=== PATIENT | male | born 1940 | race Caucasian/White ===

== ENCOUNTER 2017-11-12 13:36 | Observation (INO) | payer OTHER ==
[~2017-11-12] VITALS: Ht 177.8 cm; Wt 86.1 kg
[2017-11-12 13:57] LABS: BASOPHILS % (AUTO) 0.6 % (0.0-5.0); EOSINOPHILS % (AUTO) 6.2 % (0.0-8.0); HEMATOCRIT 36.9 % (42-54); LYMPHOCYTES % (AUTO) 21.7 % (21.0-51.0); MEAN CORPUSCULAR HEMOGLOBIN 33.4 pg (27.0-33.0); MEAN CORPUSCULAR HGB CONC 36.6 g/dL (32.0-36.0); MEAN CORPUSCULAR VOLUME 91.3 fL (79-99); MONOCYTES % (AUTO) 7.2 % (3.0-13.0); NEUTROPHILS % (AUTO) 64.3 % (40.0-77.0); PLATELET COUNT (AUTO) 113 K/uL (130-400); RED BLOOD CELL COUNT(AUTO) 4.04 MIL/uL (4.50-6.20); RED CELL DISTRIBUTION WIDTH 15.5 % (11.0-15.5); WHITE BLOOD COUNT (AUTO) 4.1 K/uL (4.8-10.8)
[2017-11-12 14:10] LABS: CREATININE 1.3 mg/dL (0.5-1.5); INR 1.09 (0.85-1.15); PARTIAL THROMBOPLASTIN TIME 25.8 SEC (26.3-35.5); POTASSIUM 4.4 mmol/L (3.5-5.1); PROTHROMBIN TIME 11.4 SEC (9.6-11.6)
[2017-11-12 14:26] LABS: ALBUMIN 3.7 g/dL (3.5-5.0); CREATINE KINASE MB 0.6 ng/mL (0.5-3.6)
[2017-11-12] MEDS ORDERED: NITROGLYCERIN 1GM/1 INCH PACKET TD ONE (14:26)
[2017-11-12] MEDS ORDERED: MAG HYDROX/AL HYDROX/SIMETH ES 30 ML SUSP UDCUP PO PRN (15:00)
[2017-11-12] MEDS ORDERED: ACETAMINOPHEN 325 MG TAB PO PRN ×2 (15:00)
[2017-11-12] MEDS ORDERED: GUAIFENESIN-DM 200/20 MG 10 ML PO PRN (15:00)
[2017-11-12] MEDS ORDERED: NITROGLYCERIN 0.4 MG SL TAB SL PRN (15:00)
[2017-11-12] MEDS ORDERED: LACTULOSE 20 GM/30 ML UDCUP PO PRN (15:00)
[2017-11-12] MEDS ORDERED: ONDANSETRON HCL 4 MG/2 ML VIAL IV PRN (15:00)
[2017-11-12] MEDS: FAMOTIDINE/PF 20 MG/2 ML VIAL IV SCH (21:00)
[2017-11-12 22:13] LABS: CREATINE KINASE MB 0.6 ng/mL (0.5-3.6); CREATINE KINASE, TOTAL 59 U/L (21-232); MYOGLOBIN 92 ng/mL (10-92); TROPONIN I < 0.04 ng/mL (0.00-0.06)
[2017-11-13 01:10] VITALS: BP 184/94
[2017-11-13 02:00] VITALS: BP 182/90
[2017-11-13] MEDS ORDERED: HYDRALAZINE HCL 20 MG/ML VIAL ONE (02:21)
[2017-11-13] MEDS ORDERED: POTASSIUM CHLORIDE 20MEQ/100ML 100 ML IV PRN (02:30)
[2017-11-13] MEDS ORDERED: MORPHINE SULFATE 2 MG/ML 1ML SYG IVP PRN ×2 (02:30)
[2017-11-13] MEDS ORDERED: IPRATROPIUM/ALBUTEROL SULFATE 3 ML SOLUTION IH PRN (02:30)
[2017-11-13] MEDS ORDERED: HYDRALAZINE HCL 20 MG/ML VIAL IV PRN (02:30)
[2017-11-13] MEDS ORDERED: POTASSIUM CHLORIDE 10% ELIXIR 20 MEQ/15 ML UDCUP PO PRN (02:30)
[2017-11-13] MEDS ORDERED: LIDOCAINE HCL-MPF 1% 2ML VIAL IVP PRN (02:30)
[2017-11-13] MEDS ORDERED: POTASSIUM CHLORIDE 20 MEQ ERTAB PO PRN (02:30)
[2017-11-13 04:00] VITALS: BP 176/95
[2017-11-13 04:23] LABS: HEMATOCRIT 37.4 % (42-54); MEAN CORPUSCULAR HEMOGLOBIN 32.3 pg (27.0-33.0); MEAN CORPUSCULAR HGB CONC 35.5 g/dL (32.0-36.0); MEAN CORPUSCULAR VOLUME 90.8 fL (79-99); PLATELET COUNT (AUTO) 111 K/uL (130-400); RED BLOOD CELL COUNT(AUTO) 4.12 MIL/uL (4.50-6.20); RED CELL DISTRIBUTION WIDTH 15.6 % (11.0-15.5); WHITE BLOOD COUNT (AUTO) 4.8 K/uL (4.8-10.8)
[2017-11-13 04:32] LABS: CARBON DIOXIDE 27 mmol/L (21-32); CHLORIDE 104 mmol/L (101-111); CREATININE 1.5 mg/dL (0.5-1.5); GLOMERULAR FILTR. RATE CALC 48 mL/min (>60); GLUCOSE,RANDOM 103 mg/dL (70-105); POTASSIUM 3.6 mmol/L (3.5-5.1); SODIUM SERUM 141 mmol/L (136-145); UREA NITROGEN, BLOOD 15 mg/dL (7-18)
[2017-11-13 04:46] LABS: CHOLESTEROL 116 mg/dL (<200); CREATINE KINASE MB 0.7 ng/mL (0.5-3.6); CREATINE KINASE, TOTAL 64 U/L (21-232); HDL CHOLESTEROL 41 mg/dL (29-71); LDL DIRECT 55 mg/dL (0-99); MYOGLOBIN 103 ng/mL (10-92); THYROID STIMULATING HORMONE 7.06 uIU/mL (0.36-3.74); TRIGLYCERIDES 224 mg/dL (30-200); TROPONIN I < 0.04 ng/mL (0.00-0.06)
[2017-11-13 08:00] VITALS: BP 203/96
[2017-11-13] MEDS ORDERED: ASPIRIN 325 MG TABLET PO SCH (09:00)
[2017-11-13] MEDS ORDERED: METOPROLOL TARTRATE 25 MG TAB PO SCH (09:00)
[2017-11-13] MEDS ORDERED: CLONIDINE HCL 0.2 MG TABLET PO SCH (09:00)
[2017-11-13] MEDS ORDERED: ENOXAPARIN SODIUM 40 MG/0.4 ML SYRINGE SQ SCH (09:00)
[2017-11-13] MEDS ORDERED: CLONIDINE HCL 0.2 MG TABLET PO ONE (09:03)
[2017-11-13] MEDS: FAMOTIDINE/PF 20 MG/2 ML VIAL IV SCH (09:08)
[2017-11-13] MEDS ORDERED: OMEP20TA25 PO (09:21)
[2017-11-13] MEDS ORDERED: CILO100T PO (09:21)
[2017-11-13] MEDS ORDERED: CLON0.1T PO (09:21)
[2017-11-13] MEDS ORDERED: CLOP75TA32 PO (09:21)
[2017-11-13] MEDS ORDERED: OMEG1CAP67 PO (09:21)
[2017-11-13] MEDS ORDERED: ASPI-555 PO (09:21)
[2017-11-13] MEDS ORDERED: TAMS-1 PO (09:21)
[2017-11-13] MEDS ORDERED: ROSU5TAB18 PO (09:21)
[2017-11-13] MEDS ORDERED: CARV12.580 PO (09:21)
[2017-11-13] MEDS ORDERED: ALLO100T PO (09:21)
[2017-11-13] MEDS ORDERED: LEVO75TA10 PO (09:21)
[2017-11-13] MEDS ORDERED: CLONIDINE HCL 0.1 MG TABLET PO PRN (10:15)
[2017-11-13] MEDS ORDERED: REGADENOSON 0.4 MG/5 ML PF SYG IVP SCH (11:45)
[2017-11-13 12:00] VITALS: BP 128/66
[2017-11-13 16:00] VITALS: BP 160/79
[2017-11-13] MEDS ORDERED: TAMSULOSIN HCL 0.4 MG CAP.ER.24H PO SCH (21:00)
[2017-11-13] MEDS ORDERED: ATORVASTATIN CALCIUM 10 MG TABLET PO SCH (21:00)
[2017-11-13] MEDS ORDERED: CILOSTAZOL 100 MG TAB PO SCH (21:00)
[2017-11-13] MEDS ORDERED: CARVEDILOL 12.5 MG TABLET PO SCH (21:00)
[2017-11-14] MEDS ORDERED: LEVOTHYROXINE 75 MCG TABLET PO SCH (06:30)
[2017-11-14] MEDS ORDERED: FISH OIL 1000 MG/CAP PO SCH (09:00)
[2017-11-14] MEDS ORDERED: ALLOPURINOL 100 MG TABLET PO SCH (09:00)
[2017-11-14] MEDS ORDERED: CLOPIDOGREL BISULFATE 75 MG TAB PO SCH (09:00)
== END 2017-11-13 18:44 | disposition home or self-care (01) ==
LOC: EDH 13:36 → EDHIP 14:57 → 2DH 11-13 01:13
PROVIDERS: ADMIT Family Medicine; ATTEND Family Medicine
DX: I25.110 Atherosclerotic heart disease of native coronary artery with unstable angina pectoris (principal); I10 Essential (primary) hypertension; E78.5 Hyperlipidemia, unspecified; E03.9 Hypothyroidism, unspecified; K21.9 Gastro-esophageal reflux disease without esophagitis; N40.0 Benign prostatic hyperplasia without lower urinary tract symptoms; M10.9 Gout, unspecified; Z95.1 Presence of aortocoronary bypass graft; Z79.899 Other long term (current) drug therapy
CPT/HCPCS: 36415 ×2; 71045; 78452; 80048; 80053; 80061; 82550 ×3; 82553 ×3; 83874 ×3; 84443; 84484 ×3; 85025; 85027; 85610; 85730; 93005; 93017; 94664; 96372; 96374; 96375; 99285; A9500 ×2; G0378 ×28; J0360; J1650; J2785; J3490

== ENCOUNTER 2017-11-21 07:33 | Observation (INO) | payer OTHER ==
[~2017-11-21] VITALS: Ht 177.8 cm; Wt 82.6 kg
[~2017-11-21 07:33] MED LIST: ALLO100T PO; ASPI-555 PO; CARV12.580 PO; CILO100T PO; CLON0.1T PO; CLOP75TA32 PO; LEVO75TA10 PO; OMEG1CAP67 PO; OMEP20TA25 PO; ROSU5TAB18 PO; TAMS-1 PO
[2017-11-21] MEDS ORDERED: SODIUM CHLORIDE 0.9% 1000ML 1,000 ML IV ONE (08:24)
[2017-11-21 08:39] LABS: APPEARANCE,URINE Clear (CLEAR); BILIRUBIN,URINE Negative (NEGATIVE); COLOR,URINE Yellow (YELLOW); GLUCOSE, URINE (UA) Negative (NEGATIVE); KETONES,URINE Negative (NEGATIVE); LEUKOCYTE ESTERASE ,URINE Trace (NEGATIVE); NITRATE,URINE Negative (NEGATIVE); OCCULT BLOOD,URINE Trace (NEGATIVE); PROTEIN,URINE POS 1+ (NEGATIVE)
[2017-11-21 08:42] LABS: BASOPHILS % (AUTO) 0.1 % (0.0-5.0); EOSINOPHILS % (AUTO) 1.5 % (0.0-8.0); HEMATOCRIT 37.4 % (42-54); LYMPHOCYTES % (AUTO) 7.4 % (21.0-51.0); MEAN CORPUSCULAR HEMOGLOBIN 33.3 pg (27.0-33.0); MEAN CORPUSCULAR HGB CONC 36.4 g/dL (32.0-36.0); MEAN CORPUSCULAR VOLUME 91.5 fL (79-99); MONOCYTES % (AUTO) 3.4 % (3.0-13.0); NEUTROPHILS % (AUTO) 87.6 % (40.0-77.0); PLATELET COUNT (AUTO) 127 K/uL (130-400); RED BLOOD CELL COUNT(AUTO) 4.09 MIL/uL (4.50-6.20); RED CELL DISTRIBUTION WIDTH 15.4 % (11.0-15.5); WHITE BLOOD COUNT (AUTO) 7.8 K/uL (4.8-10.8)
[2017-11-21 08:44] LABS: BACTERIA,URINE Rare /HPF (None Seen); RBC,URINE 0-1 /HPF (0-1); SQUAMOUS EPITHELIAL CELL,UR Rare /LPF (0-2); WBC,URINE 0-1 /HPF (0-1)
[2017-11-21 08:49] LABS: CREATININE 1.5 mg/dL (0.5-1.5); POTASSIUM 4.5 mmol/L (3.5-5.1)
[2017-11-21 09:03] LABS: ALBUMIN 3.8 g/dL (3.5-5.0); BILIRUBIN,TOTAL 1.4 mg/dL (0.2-1.0); CREATINE KINASE MB 0.6 ng/mL (0.5-3.6); TOTAL PROTEIN, SERUM 7.4 g/dL (6.0-8.3)
[2017-11-21] MEDS ORDERED: AZITHROMYCIN 250 MG TABLET PO ONE (09:47)
[2017-11-21] MEDS ORDERED: LEVOFLOXACIN 500 MG TABLET ONE (09:47)
[2017-11-21 13:00] VITALS: BP 125/62
[2017-11-21] MEDS ORDERED: NITROGLYCERIN 0.4 MG SL TAB SL PRN (13:00)
[2017-11-21] MEDS ORDERED: LIDOCAINE HCL-MPF 1% 2ML VIAL IVP PRN (13:00)
[2017-11-21] MEDS ORDERED: ACETAMINOPHEN 325 MG TAB PO PRN ×2 (13:00)
[2017-11-21] MEDS ORDERED: HYDRALAZINE HCL 20 MG/ML VIAL IV PRN (13:00)
[2017-11-21] MEDS ORDERED: MAG HYDROX/AL HYDROX/SIMETH ES 30 ML SUSP UDCUP PO PRN (13:00)
[2017-11-21] MEDS ORDERED: POTASSIUM CHLORIDE 20 MEQ ERTAB PO PRN (13:00)
[2017-11-21] MEDS ORDERED: MORPHINE SULFATE 4 MG/1ML SYG IV PRN (13:00)
[2017-11-21] MEDS ORDERED: MORPHINE SULFATE 2 MG/ML 1ML SYG IV PRN (13:00)
[2017-11-21] MEDS ORDERED: LACTULOSE 20 GM/30 ML UDCUP PO PRN (13:00)
[2017-11-21] MEDS ORDERED: POTASSIUM CHLORIDE 10% ELIXIR 20 MEQ/15 ML UDCUP PO PRN (13:00)
[2017-11-21] MEDS ORDERED: LEVOFLOXACIN 500 MG/D5W 100 ML 100 ML IV SCH (13:00)
[2017-11-21] MEDS ORDERED: POTASSIUM CHLORIDE 20MEQ/100ML 100 ML IV PRN (13:00)
[2017-11-21] MEDS ORDERED: GUAIFENESIN-DM 200/20 MG 10 ML PO PRN (13:00)
[2017-11-21] MEDS ORDERED: ONDANSETRON HCL 4 MG/2 ML VIAL IV PRN (13:00)
[2017-11-21 16:00] VITALS: BP 143/62
[2017-11-21] MEDS: SODIUM CHLORIDE 0.9% 1000ML 1,000 ML IV SCH (17:18)
[2017-11-21 19:20] VITALS: BP 135/62
[2017-11-21] MEDS: IPRATROPIUM/ALBUTEROL SULFATE 3 ML SOLUTION IH SCH ×2 (19:26→23:42)
[2017-11-21] MEDS ORDERED: ATORVASTATIN CALCIUM 10 MG TABLET PO SCH (21:00)
[2017-11-21] MEDS ORDERED: TAMSULOSIN HCL 0.4 MG CAP.ER.24H PO SCH (21:00)
[2017-11-21] MEDS ORDERED: ROSUVASTATIN CALCIUM 5 MG PO SCH (21:00)
[2017-11-21] MEDS: FAMOTIDINE 20MG TAB 20 MG TAB PO SCH (22:19)
[2017-11-21] MEDS: CARVEDILOL 12.5 MG TABLET PO SCH (22:20)
[2017-11-21] MEDS: CILOSTAZOL 100 MG TAB PO SCH (22:20)
[2017-11-22 00:02] VITALS: BP 143/67
[2017-11-22 02:23] VITALS: BP 157/81
[2017-11-22] MEDS ORDERED: ALPRAZOLAM 0.5 MG TABLET PO ONE (02:30)
[2017-11-22] MEDS ORDERED: ALPRAZOLAM 0.25 MG TABLET ONE (02:34)
[2017-11-22 04:00] VITALS: BP 105/54
[2017-11-22 04:37] LABS: HEMATOCRIT 28.3 % (42-54); MEAN CORPUSCULAR HEMOGLOBIN 33.1 pg (27.0-33.0); MEAN CORPUSCULAR HGB CONC 36.7 g/dL (32.0-36.0); MEAN CORPUSCULAR VOLUME 90.3 fL (79-99); PLATELET COUNT (AUTO) 97 K/uL (130-400); RED BLOOD CELL COUNT(AUTO) 3.13 MIL/uL (4.50-6.20); RED CELL DISTRIBUTION WIDTH 15.4 % (11.0-15.5); WHITE BLOOD COUNT (AUTO) 4.3 K/uL (4.8-10.8)
[2017-11-22 04:52] LABS: CREATININE 1.4 mg/dL (0.5-1.5); POTASSIUM 3.8 mmol/L (3.5-5.1)
[2017-11-22] MEDS: SODIUM CHLORIDE 0.9% 1000ML 1,000 ML IV SCH (06:07)
[2017-11-22] MEDS ORDERED: LEVOTHYROXINE 75 MCG TABLET PO SCH (06:30)
[2017-11-22] MEDS: IPRATROPIUM/ALBUTEROL SULFATE 3 ML SOLUTION IH SCH (06:40)
[2017-11-22 08:00] VITALS: BP 133/65
[2017-11-22] MEDS ORDERED: ASPIRIN 81 MG EC TAB PO SCH (09:00)
[2017-11-22] MEDS ORDERED: ALLOPURINOL 100 MG TABLET PO SCH (09:00)
[2017-11-22] MEDS ORDERED: ENOXAPARIN SODIUM 40 MG/0.4 ML SYRINGE SQ SCH (09:00)
[2017-11-22] MEDS ORDERED: CLOPIDOGREL BISULFATE 75 MG TAB PO SCH (09:00)
[2017-11-22] MEDS ORDERED: FISH OIL 1000 MG/CAP PO SCH (09:00)
[2017-11-22] MEDS: CARVEDILOL 12.5 MG TABLET PO SCH (09:23)
[2017-11-22] MEDS: FAMOTIDINE 20MG TAB 20 MG TAB PO SCH (09:23)
[2017-11-22] MEDS: CILOSTAZOL 100 MG TAB PO SCH (09:24)
[2017-11-22 12:00] VITALS: BP 149/72
[2017-11-22] MEDS ORDERED: LEVOFLOXACIN 500 MG/D5W 100 ML 100 ML IV SCH (13:15)
== END 2017-11-22 14:15 | disposition home or self-care (01) ==
LOC: EDH 07:33 → EDHIP 10:35 → 3AH 12:18
PROVIDERS: ADMIT Internal Medicine; ATTEND Internal Medicine
DX: J18.9 Pneumonia, unspecified organism (principal); I25.10 Atherosclerotic heart disease of native coronary artery without angina pectoris; I10 Essential (primary) hypertension; E78.5 Hyperlipidemia, unspecified; E03.9 Hypothyroidism, unspecified; D64.9 Anemia, unspecified; Z95.1 Presence of aortocoronary bypass graft; Z82.49 Family history of ischemic heart disease and other diseases of the circulatory system; Z88.0 Allergy status to penicillin; Z90.49 Acquired absence of other specified parts of digestive tract; Z79.82 Long term (current) use of aspirin
CPT/HCPCS: 36415 ×2; 71045 ×2; 74176; 80048; 80053; 81001; 82550; 82553; 83605; 84484; 85025; 85027; 87804 ×2; 93005; 94640 ×3; 94664; 96361 ×2; 96365; 99285; G0378 ×28; J1956; J7030 ×2

== ENCOUNTER → 2019-04-15 | Outpatient (CLI) | payer OTHER ==
[~2019-04-15] MED LIST changes: +ROSU5TAB12 PO; -ROSU5TAB18 PO
== END | disposition home or self-care (01) ==
LOC: SHCH 07:47
PROVIDERS: ATTEND Internal Medicine Cardiovascular Disease
DX: N28.1 Cyst of kidney, acquired (principal); I10 Essential (primary) hypertension
CPT/HCPCS: 93975

== ENCOUNTER 2019-11-04 01:01 | Emergency (ER) | payer OTHER ==
[2019-11-04 01:47] LABS: BASOPHILS % (AUTO) 0.3 % (0.0-5.0); EOSINOPHILS % (AUTO) 8.7 % (0.0-8.0); MEAN CORPUSCULAR HEMOGLOBIN 33.1 pg (27.0-33.0); MEAN CORPUSCULAR VOLUME 94.4 fL (79-99); MONOCYTES % (AUTO) 7.9 % (3.0-13.0); NEUTROPHILS % (AUTO) 58.6 % (40.0-77.0); PLATELET COUNT (AUTO) 98 K/uL (130-400); RED CELL DISTRIBUTION WIDTH 14.4 % (11.0-15.5); WHITE BLOOD COUNT (AUTO) 3.7 K/uL (4.8-10.8)
[2019-11-04 02:57] LABS: CREATININE 1.2 mg/dL (0.5-1.5); POTASSIUM 3.7 mmol/L (3.5-5.1)
== END 2019-11-04 03:19 | disposition home or self-care (01) ==
LOC: EDH 01:01
DX: I10 Essential (primary) hypertension (principal); E78.5 Hyperlipidemia, unspecified; I25.2 Old myocardial infarction; E78.00 Pure hypercholesterolemia, unspecified; Z88.0 Allergy status to penicillin; Z88.8 Allergy status to other drugs, medicaments and biological substances; Z88.1 Allergy status to other antibiotic agents
CPT/HCPCS: 36415; 80048; 84484; 85025; 93005

== ENCOUNTER 2019-11-07 17:38 | Emergency (ER) | payer OTHER ==
[2019-11-07 18:28] LABS: BASOPHILS % (AUTO) 0.2 % (0.0-5.0); EOSINOPHILS % (AUTO) 6.9 % (0.0-8.0); HEMATOCRIT 34.3 % (42-54); LYMPHOCYTES % (AUTO) 20.5 % (21.0-51.0); MEAN CORPUSCULAR HEMOGLOBIN 33.1 pg (27.0-33.0); MEAN CORPUSCULAR VOLUME 94.5 fL (79-99); MONOCYTES % (AUTO) 7.9 % (3.0-13.0); PLATELET COUNT (AUTO) 99 K/uL (130-400); RED BLOOD CELL COUNT(AUTO) 3.63 MIL/uL (4.50-6.20); RED CELL DISTRIBUTION WIDTH 14.3 % (11.0-15.5)
[2019-11-07 18:38] LABS: CREATININE 1.2 mg/dL (0.5-1.5); POTASSIUM 4.2 mmol/L (3.5-5.1)
[2019-11-07 18:43] LABS: ALBUMIN 3.5 g/dL (3.5-5.0); BILIRUBIN,TOTAL 0.8 mg/dL (0.2-1.0); TOTAL PROTEIN, SERUM 6.5 g/dL (6.0-8.3)
[2019-11-07 19:02] LABS: INR 1.12 (0.85-1.15); PARTIAL THROMBOPLASTIN TIME 26.4 SEC (26.3-35.5); PROTHROMBIN TIME 11.7 SEC (9.6-11.6)
[2019-11-07] MEDS ORDERED: LISINOPRIL 5 MG TABLET ONE (19:52)
== END 2019-11-07 19:55 | disposition home or self-care (01) ==
LOC: EDH 17:38
DX: I10 Essential (primary) hypertension (principal); E78.5 Hyperlipidemia, unspecified; E78.00 Pure hypercholesterolemia, unspecified; I25.2 Old myocardial infarction; Z87.891 Personal history of nicotine dependence; Z88.0 Allergy status to penicillin; Z88.8 Allergy status to other drugs, medicaments and biological substances; Z88.1 Allergy status to other antibiotic agents
CPT/HCPCS: 36415; 80053; 82550; 84484; 85025; 85610; 85730; 93005

== ENCOUNTER → 2019-12-17 | Outpatient (CLI) | payer OTHER | END | disposition home or self-care (01) | LOC: SHCH 07:51 | PROVIDERS: ATTEND Internal Medicine Cardiovascular Disease | DX: N28.1 Cyst of kidney, acquired (principal); I10 Essential (primary) hypertension | CPT/HCPCS: 93975 ==

== ENCOUNTER 2021-03-24 | Emergency (ER) | payer OTHER ==
[~2021-03-24] VITALS: Ht 177.8 cm; Wt 70.3 kg
[~2021-03-24] MED LIST changes: -ASPI-555 PO; +ASPI-556 PO; +MULT-1247 PO; +NITR0.4T50 SL
[2021-03-24 00:37] VITALS: BP 182/67
[2021-03-24 00:49] LABS: CREATININE 0.9 mg/dL (0.5-1.5); POTASSIUM 3.4 mmol/L (3.5-5.1)
[2021-03-24 00:53] LABS: HEMATOCRIT 32.3 % (42-54); MEAN CORPUSCULAR HEMOGLOBIN 33.9 pg (27.0-33.0); MEAN CORPUSCULAR HGB CONC 34.7 g/dL (32.0-36.0); MEAN CORPUSCULAR VOLUME 97.9 fL (79-99); RED BLOOD CELL COUNT(AUTO) 3.3 MIL/uL (4.50-6.20); RED CELL DISTRIBUTION WIDTH 13.6 % (11.0-15.5); WHITE BLOOD COUNT (AUTO) 4.2 K/uL (4.8-10.8)
[2021-03-24 00:54] LABS: ALBUMIN 3.4 g/dL (3.5-5.0); TOTAL PROTEIN, SERUM 6.6 g/dL (6.0-8.3)
[2021-03-24 01:33] VITALS: BP 163/65
[2021-03-24] MEDS ORDERED: POTASSIUM CHLORIDE 10% ELIXIR 20 MEQ/15 ML UDCUP PO ONE (01:45)
[2021-03-24] MEDS ORDERED: NITROGLYCERIN 1GM OINT 1 INCH/1GM TD ONE (01:45)
[2021-03-24] MEDS ORDERED: ASPIRIN 325 MG TABLET PO ONE (01:45)
[2021-03-24] MEDS ORDERED: MAGNESIUM OXIDE 400 MG TABLET PO SCH (02:45)
[2021-03-24] MEDS ORDERED: HYDRALAZINE 20MG/ML VIAL ONE (03:21)
[2021-03-24 03:26] VITALS: BP 188/64
[2021-03-24] MEDS ORDERED: HYDRALAZINE 20MG/ML VIAL IV SCH (03:30)
[2021-03-24 03:54] VITALS: BP 157/66
[2021-03-24 04:57] VITALS: BP 142/64
[2021-03-24 06:04] VITALS: BP 132/64
== END 2021-03-24 06:45 | disposition home or self-care (01) ==
LOC: EDH 00:06
DX: I10 Essential (primary) hypertension (principal); E78.00 Pure hypercholesterolemia, unspecified; Z88.0 Allergy status to penicillin; Z79.82 Long term (current) use of aspirin; Z79.899 Other long term (current) drug therapy; Z88.8 Allergy status to other drugs, medicaments and biological substances; Z95.1 Presence of aortocoronary bypass graft; Z98.890 Other specified postprocedural states
CPT/HCPCS: 36415; 80053; 83735; 84484 ×2; 85027; 93005 ×2; 96374; 99285; J0360